=== PATIENT | female | born 1960 | race Caucasian/White ===

== ENCOUNTER 2025-06-16 00:12 | Emergency (ER) | payer OTHER, SELFPAY ==
[2025-06-16] VITALS (13 sets, daily range): BP systolic 103–159; BP diastolic 51–119; PULSE 64–77; RESP 17–23; TEMP 36.8–37.2; O2SAT 95–100
--- NOTE | 2025-06-16 00:19 | EKG_ITS ---
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
--- NOTE | 2025-06-16 00:33 | PC.NURSE ---
POISON CONTROLLED CALLED, SPOKE WITH SCOT, DUE TO PATIENT TAKING 30 PILLS OF AMBIEN 10MG SHE STATED THERE IS NOT MUCH TO DO OTHER THAN SUPPORTIVE CARE. MONITOR FOR DROWSINESS AND OBS UNTIL PATIENT REACHES BASELINE. PT MAY BECOME HYPOTENSIVE. THEY WILL CALL BACK IN AM
--- NOTE | 2025-06-16 00:38 | PD.EDOVER ---
ED Overdose RME/HPI General Chief Complaint: Overdose Stated Complaint: OVERDOSE Time Seen by Provider: 06/16/25 00:29 Arrival date/time: 06/16/25 00:12 RME / HPI Onset (ago): hour(s) (1) Time: 23:32 Timing confirmed by: spouse RME / HPI Narrative: DR. 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 Per EMS, Patient alerted that she accidentally took a full bottle of the wrong medication. After returned inside after to starting the car, he found patient unconscious on the floor. Upon EMS arrival, patient was observed to be gag-breathing with respirations of 18/min, and was placed on 6L O2 per protocol. Patient has a history of 1 suicide attempt via drug overdose. Denies desire to harm herself and suicidal ideation. How Overdose Was Discovered: other (Told ) Associated symptoms: syncope Treatments Prior to Arrival: oxygen Related Data Home Medications ?Medication ?Instructions ?Recorded ?Confirmed fluoxetine 40 mg capsule 40 mg PO QDAY 10/12/21 10/12/21 levothyroxine 100 mcg tablet 100 mcg PO QDAY 10/12/21 10/12/21 lisinopril 10 mg tablet 10 mg PO QDAY 10/12/21 10/12/21 pravastatin 20 mg tablet 20 mg PO QDAY 10/12/21 10/12/21 Allergies Allergy/AdvReac Type Severity Reaction Status Date / Time No Known Allergies Allergy Verified 10/11/21 13:33 Review of Systems Review of Systems Systems Reviewed: All systems reviewed, normal except as documented Past Medical History Past Medical History CARDIAC: Positive Cardiac Disorders, Hypercholesterolemia and Hypertension GASTROINTESTINAL: Positive Gastrointestinal Disorders, Gastroesophageal Reflux Disease and Obesity (130 lbs loss) REPRODUCTIVE: Positive Endometriosis MUSCULOSKELETAL: Positive Musculoskeletal Disorders and Arthritis (bilateral knees) ENT: Positive Ear Infection and Deafness (left ear) ENDOCRINE: Positive Endocrine Disorders and Hypothyroidism HEMATOLOGIC: Positive Blood Disorders (Iron infusions x 2) and Anemia PSYCHO/SOCIAL: Positive Bipolar Disorder, Depression and Anxiety OTHER HISTORY: Positive Hospitalization and Falls Surgical History SURGICAL: Positive Ear Surgery, Tonsillectomy, Abdominal Surgery, Joint Replacement and Hysterectomy ED Exam Narrative Physical exam: Scribe Attestation: Breann Ellis am scribing for and in the presence of Dr. Hernandez. Provider Notation: Although this document has been carefully reviewed, there may still be some phonetic and other typographical errors. These errors are purely grammatical due to imperfections in the software program and should not be construed in any way to compromise the substance of the patient's medical care during this visit. Generally patient is somnolent but alert, heart regular rate and rhythm, lungs clear to auscultation equal bilaterally, abdomen is obese and nontender, neurologic exam shows a [place] Coma Scale of 14 with gag reflex intact, skin is cool pale and dry Course Quality Measures none Orders Category Date Time Status Consult Band [place] NOW Care 06/16/25 00:56 Active EKG (ED ONLY) *Do not use* NOW Care 06/16/25 00:19 Completed [place] to [place] Routine Care 06/16/25 01:06 Ordered Insert IV NOW Care 06/16/25 00:19 Active EKG (ED Only) Stat Exams 06/16/25 00:19 Draft Acetaminophen Stat Lab 06/16/25 00:30 Completed Alcohol, Blood Medical Stat Lab 06/16/25 00:30 Completed CBC Stat Lab 06/16/25 00:30 Completed CMP [Comprehensive Metabolic Panel] Stat Lab 06/16/25 00:30 Completed Drug Screen,Urine Stat Lab 06/16/25 00:32 Ordered Salicylate Stat Lab 06/16/25 00:30 Completed Sodium Chloride 0.9% 1000 ml [Ns] 1,000 ml Med 06/16/25 00:30 Discontinued IV 999 mls/hr Vital Signs Vital signs: Vital Signs Pulse Rate 68 06/16/25 00:17 Respiratory Rate 23 H 06/16/25 00:17 Blood Pressure 157/119 H 06/16/25 00:17 Pulse Oximetry (%) 100 06/16/25 00:17 Overdose MDM Narrative MDM Narrative:: Scribe Attestation: Breann Ellis am scribing for and in the presence of Dr. Hernandez. Provider Notation: Although this document has been carefully reviewed, there may still be some phonetic and other typographical errors. These errors are purely grammatical due to imperfections in the software program and should not be construed in any way to compromise the substance of the patient's medical care during this visit. Patient apparently took 30 tablets of 10 mg Ambien. Case was discussed with poison control who states that care is simply supportive. Aspirin and Tylenol levels were not elevated. Alcohol level is negative. EKG shows normal sinus rhythm at a rate of 75 without ischemic change or ectopy and with normal intervals. I interpreted all labs. It is uncertain at this time whether or not the patient wanted to hurt herself by ingesting so many tablets however this is still unusual and strange behavior. volunteer services coordinator consult will be obtained. Case will have to be signed out to Dr. Resendiz pending the patient's return to her normal mental status. Patient's vital signs were stable here in the emergency room. Last blood pressure was 135/73. Heart rate has been in the 80s. Patient data External records reviewed:: [facility] previous records (Reviewed prior ED records from 10/11/21. Patient was seen for Altered mental status.) and EMS form Clinical information provided by:: EMS Social determinants that could affect healthcare access:: mental health (Depression/Anxiety) Patient has the following chronic illnesses:: Depression/Anxiety How is presenting disease/condition affected by chronic disease/condition?: exacerbated by Evaluation data The following diagnostics were reviewed and interpreted by me:: lab results and EKG tracing(s) Lab and/or radiology exams considered but not ordered:: None Interpretation Summary: See MDM above. Medications / Prescriptions Medications or Prescriptions considered but not ordered:: None Medication administrations:: Medication Administration History Discontinued Medications Sodium Chloride (Ns) 1,000 mls @ 999 mls/hr IV .Q1H1M ONE Stop: 06/16/25 01:30 Last Admin: 06/16/25 01:40 Dose: 999 mls/hr Documented By: CJ See above if any. Consultations Consultation(s) initiated? (list below): No Diagnosis Overdose Differential Diagnosis: suicide attempt by multiple drug overdose, poisoning by opiate or related narcotic, drug overdose, acetaminophen overdose and accidental drug ingestion Most likely diagnosis given after review of the tests above:: None Admission Indicated Admission indicated?: not indicated Explain why admission is indicated or not indicated:: Patient does not meet admission criteria. Admission Request Was there a request for admission?: No Disposition Plan Disposition Plan: other (specify) Critical Care Time Critical Care Time Critical Care Time: Yes Total Critical Care Time (min.): 35 Attestation: Excluding other billable procedures Discharge Plan Prescriptions/Referrals Prescriptions/Med Rec: No Action fluoxetine 40 mg capsule 40 mg PO QDAY Patient Comments: TAKE 1 CAPSULE BY MOUTH EVERY DAY levothyroxine 100 mcg tablet 100 mcg PO QDAY Patient Comments: TAKE 1 TABLET BY MOUTH EVERY DAY lisinopril 10 mg tablet 10 mg PO QDAY Patient Comments: TAKE 1 TABLET BY MOUTH EVERY DAY pravastatin 20 mg tablet 20 mg PO QDAY Patient Comments: TAKE 1 AND 1/2 TABLETS BY MOUTH DAILY Referrals: Mary Cummins MD [Primary Care Provider] - In 1 week Problem List Clinical Impression: Overdose Patient/Caregiver Discharge Instructions Print Language: Mongolian
[2025-06-16 00:50] LABS: Basophils # (Auto) 0.1 Thou/mm3 (0.0-0.2); Basophils % (Auto) 1 % (0-2.5); Eosinophils # (Auto) 0.6 Thou/mm3 (0.0-0.5); Eosinophils % (Auto) 8 % (0-10); Hematocrit 36.2 % (36.0-46.0); Hemoglobin 11.7 g/dL (12.0-16.0); Immature Granulocytes Auto 0.01 Thou/mm3 (0.00-0.00); Lymphocytes # (Auto) 2.7 Thou/mm3 (1.0-4.8); Lymphocytes % (Auto) 38 % (10-50); Mean Corpuscular HGB Conc 32.3 g/dl (31.0-37.0); Mean Corpuscular Hemoglobin 32.2 pg (25.0-35.0); Mean Corpuscular Volume 100 fL (80-100); Monocytes # (Auto) 0.8 Thou/mm3 (0.0-0.8); Monocytes % (Auto) 11 % (0-12); Neutrophils # (Auto) 2.9 Thou/mm3 (1.8-7.7); Neutrophils % (Auto) 42 % (37-80); Nucleated Red Blood Cell # 0.00 Thou/mm3 (0.00-0.00); Nucleated Red Blood Cell % 0 /100 WBC (0); Platelet Count 301 Thou/mm3 (140-440); RDW Standard Deviation 49.3 fL (36.4-46.3); Red Blood Count 3.63 Miln/mm3 (4.00-5.20); White Blood Count 7.1 Thou/mm3 (3.6-11.0)
[2025-06-16 01:09] LABS: Acetaminophen 3.7 mcg/mL (10.0-20.0); Alanine Aminotransferase 17 U/L (10-49); Albumin, Serum 4.1 gm/dL (3.4-4.8); Albumin/Globulin Ratio 1.6 (1.2-2.2); Alcohol, Blood Medical < 3.0 mg/dL (0-10.0); Alkaline Phosphatase 113 U/L (46-116); Anion Gap 8 (7-16); Aspartate Amino Transferase 25 U/L (0-34); BUN/Creatinine Ratio 17 Ratio (12-20); Bilirubin,Total < 0.2 mg/dL (0.3-1.2); Blood Urea Nitrogen 19 mg/dL (9-23); Calcium 8.5 mg/dL (8.3-10.6); Calcium (Corrected) 8.5 mg/dL (8.5-10.1); Carbon Dioxide 25.1 mMol/L (20.0-31.0); Chloride 108 mMol/L (98-107); Creatinine (Component) 1.1 mg/dL (0.6-1.3); Globulin 2.6 gm/dL (2.3-3.5); Glucose 94 mg/dL (74-106); Osmolality,Calculated 283 (275-295); Potassium 4.5 mMol/L (3.4-5.1); Salicylate < 3.0 mg/dL; Sodium 141 mMol/L (136-145); Total Protein 6.7 gm/dL (5.7-8.2); eGFR 57 See Note
[2025-06-16] MEDS: SODIUM CHLORIDE 0.9% 1000 ML 1,000 ML 999 ML IV (01:40)
--- NOTE | 2025-06-16 03:16 | PC.NURSE ---
PT IS SLEEPING VS REMAIN WNL. AROUSES EASILY.
--- NOTE | 2025-06-16 04:50 | PC.NURSE ---
PT IS AWAKE. GCS 15. CALM AND COOPERATIVE. PT STATES SHE ACCIDENTALYTOOK THE WHOLE BOTTLE OF AMBIEN, THINKING SHE HAD HER TYLENOL. STATES SHE KEEPS A BOTTLE OF ONE DOSE THLENOL NEXT TO HER BED FOR ACHES AND PAINS DURING THE NIGHT. STATES IT WAS DARK AND SHE GRABED THE WRONG BOTTLE. PT DENIES OVER DOSING INTENTIONALLY. DENIES SUICIDAL THOUGHTS. SPOKE WITH ED MD. PT WILL BE ASSESSED BY FLEET SALES ASSOCIATE IN THE MORNING.
--- NOTE | 2025-06-16 04:58 | PD.EDADDENDU ---
Emergency Room Addendum Addendum Narrative: Patient now is awake alert and oriented. I am confused on the story that the patient has and why she took so many pills. She denies suicidal ideation. Patient is now medically clear. I will have high school social studies tutor speak with the patient concerning the reason why she took 30 pills of Ambien. At this time, patient is medically clear for social service evaluation.
--- NOTE | 2025-06-16 06:50 | PC.NURSE ---
PT ASLEEP. AROUSES EASILY. VS WNL. WAITING FOR SOCIAL SEVICES. PT DENIES TRYING OR WANTING TO HARM HERSELF. HUSB AND AGREES. PT CONTINUES TO SAY SHE WAS NOT INTENDING TO HARM HERSELF.
--- NOTE | 2025-06-16 08:24 | EDNOTE_ITS ---
Emergency Room Addendum Addendum Narrative: I took over the care from previous shift physician, Dr. Lauren, at _0600_ on _06/16/25_. See previous notes for complete H & P and ED course. I reviewed all diagnostic test results. After evaluation by our ED memory care director, decision was made to discharge the patient to her with safety plan. Based on my best medical judgment, made decision no further evaluation or treatment indicated at this time. Patient understands and agrees to the discharge instructions customized and printed, see below. Discharge Instructions from Dr. Resendiz: 1. After evaluation by our ED memory care director, decision was made to discharge you home to your with safety plan. 2. You don't meet the criteria for emergency residential in psychiatric unit against your will.? Because you have no thoughts of hurting yourself or others.? And there are no signs of psychosis (loss of touch with reality) which can potentially be harmful to you and others. Please follow the instructions and the safety plan. 3. See a private doctor on 06/17/25 for recheck and further care. Ask to help you stay healthy both physically and mentally.? And help to receive all services available to you, including referral to see mental health specialists. 4. Seek immediate medical care (you can call 911 any time) with thoughts of hurting yourself or with any concerns. Sergey Resendiz MD
[2025-06-16 09:30] LABS: Amphetamine/Methamp Scrn,U Negative (Negative); Barbiturate Screen,Urine Positive (Negative); Benzodiazepines Screen,Urine Negative (Negative); Benzoylecgonine Screen, Ur Negative (Negative); Fentanyl Screen,Urine Negative (Negative); Opiate Screen,Urine Negative (Negative); THC Screen,Urine Negative (Negative)
--- NOTE | 2025-06-16 13:06 | PC.CC ---
BAKERY TEAM MEMBER Teresa met with the patient [id number] to conduct a mental health evaluation. The BAKERY TEAM MEMBER introduced herself, explained her role in the agency, the reason for the visit, and discussed the limits of confidentiality. The patient appeared alert and oriented to self, place, and situation. The patient appeared to be the stated age. The patient made good eye contact. The patient's attitude appeared pleasant but guarded. The patient's behavior and mood appeared ordinary, with no signs of delusions or hallucinations. The BAKERY TEAM MEMBER asked the patient what brought her to the ED. The patient responded in a sarcastic tone, The ambulance? The BAKERY TEAM MEMBER clarified the reason for her visit to the ED. The patient reported, I accidentally took 27 to 28 pills of Ambien. The BAKERY TEAM MEMBER asked for clarification on how taking so many pills could be an accident. The patient explained that she normally keeps Tylenol, Ambien, and water on her nightstand. She usually takes 3 Tylenol pills for leg pain. The patient reported that she was half asleep when she took the Ambien, and as she was swallowing the pills, she woke up and asked her , Derek, to bring her to the ED. Throughout the conversation, the patient repeatedly denied that this was a suicide attempt, insisting that it was an accident. The patient shared that she suffers from depression due to the deaths of her mother, father, and [id number] within a five-year period. The patient also reported being discharged from therapy. She continues to take Prozac, which was prescribed by her PCP, Dr. Kay. The patient denied any homicidal ideation (HI), suicidal ideation (SI), auditory hallucinations (A/H), visual hallucinations (V/H), or past suicide attempts. The patient mentioned that she was previously admitted to [facility] for altered mental status (AMS) changes due to overtaking Xanax, which she no longer consumes. The BAKERY TEAM MEMBER recommended that the patient seek a psychiatrist and resume therapy. The BAKERY TEAM MEMBER spoke with the patient's , Derek. According to Derek, he had no concerns about the patient's behavior. He did, however, express a desire for the patient to stop taking Ambien. The BAKERY TEAM MEMBER redirected the patient to speak with a psychiatrist or ED physician about discontinuing Ambien. Derek requested a safety plan, as he believes the patient was half asleep when she took the medication. The BAKERY TEAM MEMBER contacted the Director of Care Integration, Jazmin Treviño. After discussing the case, it was recommended to implement a safety plan. The BAKERY TEAM MEMBER safety planned with Derek. Derek agreed to remain home with the patient for the next 72 hours, administer her medications, supervise the patient when cooking with sharp knives, lock firearms in a safe, keep all cleaning liquids out of the patient's reach, and schedule an appointment with her PCP and outpatient psychiatric services. Derek agreed to the safety plan. The BAKERY TEAM MEMBER provided Derek with information for the [facility], [facility], and [facility]. BAKERY TEAM MEMBER notified Derek and patient that a member of [employer] will do a follow-up phone call.
--- NOTE | 2025-06-18 13:05 | PC.SS ---
SS contacted patient Leah, to follow up on her plan to schedule an appointment with her PCP and to connect with a therapist. Leah reported that she attempted to contact a therapist, but the call went to voicemail as the therapist is currently on vacation. When asked about her PCP appointment, Leah mentioned she would call to schedule it after the holidays. SS advised patient that making these follow up appointment was part of the safety plan and should be done promptly. Leah verbalized understanding and reported she would follow up. Patient?s Derek contacted since the patent had not answered initially. SS informed Derek of the importance of Leah following through with both her PCP and therapist appointments, as it was part of her safety plan. Derek assured SS that he would ensure Leah follows up with both providers. ?
--- NOTE | 2025-06-19 10:43 | PC.SS ---
SS follow up note; SS attempted to contact Patient, however patient did not answer. SS left Voicemail reminding patient to schedule an appointment with PCP and Therapist. SS provided SS contact number. SS also contacted patient's and left VM as well.
== END 2025-06-16 13:40 | disposition home or self-care (01) ==
PROVIDERS: Emergency Medicine; Emergency Provider Emergency Medicine; PCP Family Medicine
DX: T42.4X1A Poisoning by benzodiazepines, accidental (unintentional), initial encounter (principal); R55 Syncope and collapse
CPT/HCPCS: 36415; 51702; 80053; 80307; 80320; 80329; 85025; 93005; 96127; 96360; 96361; 99283; A4314; J7030; G0480